=== PATIENT | female | born 1960 | race American Indian/Alaskan Native ===

== ENCOUNTER 2019-09-16 14:30 | Outpatient (CLI) | payer BC ==
--- NOTE | 2019-09-20 10:03 | Magnetic Resonance Report ---
BILATERAL BREAST MR WITHOUT AND WITH GADOLINIUM INDICATION: Breast cancer survivor status post left mastectomy with implant reconstruction status po st right breast augmentation. Left breast tenderness. COMPARISONS: 08/31/2019 screening mammogram. TECHNIQUE: Axial 1.0 mm T1 without, axial high-resolution 2.0 mm T2 and axial 1.0 mm dynamic vibrant high-resolution postcontrast T1 fat saturation sequences on a 1.5 Stacy magnet. The examination was p erformed with an 8-channel dedicated [place] breast coil. Post-processing with CAD and subtraction was performed on an [employer] workstation. 16.0 cc of MultiHance was injected without incident for the c ontrast portion of the exam. Consent was obtained prior to the administration of the contrast. FINDINGS: RIGHT BREAST: Minimal background parenchymal enhancement. No mass or suspicious enhancement. A subpec ran implant is in place. No suspicious lymph nodes. LEFT BREAST: Mild background parenchymal enhancement. No mass or suspicious enhancement. Intact impla nt. No suspicious lymph nodes. IMPRESSION: Negative study with no evidence of malignancy. BI-RADS Category 2: Benign A normal MRI does not exclude the presence of some forms of breast malignancy as literature reports s uggest that some forms of ductal carcinoma in situ or lobular carcinoma, particularly, may not be det ected on MRI. The sensitivity and specificity of MRI for cancers under 5 mm may be reduced. MRI does not replace the recommendation for annual conventional mammographic evaluation and should be used as an adjunct to mammography and physical examination as necessary. Signer Name: Royer Cornell MD Signed: 09/20/2019 9:58 AM Workstation Name: [id number]
== END 2019-09-16 14:31 | disposition home or self-care (01) ==
LOC: SPVIMAG 14:30
PROVIDERS: ATTEND Surgery
DX: N64.4 Mastodynia (principal); Z85.3 Personal history of malignant neoplasm of breast
CPT/HCPCS: A9577; C8908; 77049

== ENCOUNTER 2020-09-15 09:01 | Outpatient (CLI) | payer BC ==
--- NOTE | 2020-09-15 12:17 | Mammography Report ---
DIGITAL SCREENING MAMMOGRAM WITH CAD, 09/15/2020 INDICATION: Routine screening mammography. TECHNIQUE: Digital right 2D mammography was obtained in the craniocaudal and mediolateral oblique pr ojections. This examination was interpreted with the benefit of Computer-Aided Detection analysis. COMPARISON: 08/31/2019, 08/21/2018 FINDINGS: Breast Density: There are scattered areas of fibroglandular density. There is no evidence of dominant mass, suspicious calcifications or architectural distortion in the r ight breast. A right retropectoral silicone implant is present. Overall, no interval change. IMPRESSION: No mammographic evidence of malignancy. BI-RADS Category 2: Benign. No mammographic evidence of malignancy. Recommend routine screening ma mmography in one year. A "normal" or negative report should not discourage follow up or biopsy of a clinically significant f inding. A written summary of these findings will be mailed to the patient. The patient will be entered into a mammography reporting system which will generate a reminder letter for the patient's next appointmen t at the appropriate interval. The [employer] recommends yearly mammograms starting at age 40 and continuing as l [place] as a woman is in good health. Breast MRI is recommended for women with an approximate 20-25% or greater lifetime risk of breast cancer, including women with a strong family history of breast or ova carrie cancer or who have been treated for Hodgkin's disease. Signer Name: Gayathri Rosenberg MD Signed: 09/15/2020 12:13 PM Workstation Name: [id number]
== END 2020-09-15 09:02 | disposition home or self-care (01) ==
LOC: SPVWC 09:01
PROVIDERS: ATTEND Surgery
DX: Z12.31 Encounter for screening mammogram for malignant neoplasm of breast (principal)

== ENCOUNTER 2020-10-03 07:49 | Outpatient (CLI) | payer BC ==
--- NOTE | 2020-10-03 15:36 | Magnetic Resonance Report ---
BILATERAL BREAST MRI WITH AND WITHOUT CONTRAST CLINICAL INFORMATION/INDICATION: The patient has a personal history of left breast cancer treated wit h mastectomy. This is a high risk screening evaluation.. TECHNICAL: Axial T1 and T2-weighted fat sat images were obtained precontrast. Gadolinium-based contra st was injected intravenously and serial axial T1 weighted images with fat saturation were obtained. 3-D MIP projections, kinetic analysis and subtraction imaging was utilized to evaluate. A dedicated 8 -channel breast coil was used for image acquisition. COMPARISON: Breast MRI, 09/16/2019. Right unilateral screening mammogram, 09/16/2019 FINDINGS: There is low level background enhancement within both breasts. There are bilateral retropectoral impl ants which appear grossly intact. Right breast: No dominant mass or suspicious area of enhancement is seen in the right breast. Left breast: The patient has had previous left mastectomy and reconstruction with a retropectoral imp lant. No dominant mass or suspicious area of enhancement is seen in the reconstructed left breast. Axilla: No pathologically enlarged axillary lymph nodes are identified. Additional findings: Limited imaging of the thorax and upper abdomen demonstrates no focal abnormalit y. IMPRESSION: 1. No MRI abnormality of either breast. Follow up recommendation: Routine yearly BI-RADS Category 2: Benign. Signer Name: Sonia Isbell MD Signed: 10/03/2020 3:31 PM Workstation Name: [id number]
== END 2020-10-03 07:50 | disposition home or self-care (01) ==
LOC: SPVIMAG 07:49
PROVIDERS: ATTEND Surgery
DX: Z12.31 Encounter for screening mammogram for malignant neoplasm of breast (principal); Z80.3 Family history of malignant neoplasm of breast
CPT/HCPCS: A9575; C8908; 77049